=== PATIENT | female | born 1965 | race Caucasian/White ===

== ENCOUNTER 2016-05-20 08:43 | Outpatient (CLI) | payer OTHER ==
--- NOTE | 2016-05-20 10:47 | DIAGNOSTIC IMAGING REPORT ---
PROCEDURE: US ABDOMEN ULTRASOUND-COMPLETE INDICATION: Abdominal pain x several months. Initial encounter. TECHNIQUE: Back scale and color Doppler sonographic images of the abdomen were obtained. COMPARISON: Abdominal ultrasound 01/21/2010. FINDINGS: Normal liver, pancreas and spleen. Normal gallbladder and CBD (3.2 mm). Negative Lozada's sign. Aorta and IVC are patent. Normal hepatopetal flow. Normal kidneys. Right kidney measures 11.2 cm and left kidney 9.9 cm. IMPRESSION: 1. Normal abdominal ultrasound.
== END 2016-05-20 23:00 ==
LOC: US SRH 08:43
DX: R10.9 Unspecified abdominal pain (principal)